=== PATIENT | female | born 1945 | race Caucasian/White ===

== ENCOUNTER 2017-12-25 11:00 | Observation (INO) | payer OTHER ==
[2017-12-25 12:24] LABS: Absolute Lymphocytes (CBC) 1.3 K/uL (0.7-4.9); Absolute Monocytes 0.7 K/uL (0.1-1.3); Absolute Neutrophil 7.7 K/uL (1.8-8.0); Basophils % 1.1 % (0-1.3); Eosinophils % 4.6 % (0-4.4); Hematocrit 29.5 % (36.0-45.0); Lymphocytes % 12.6 % (15.3-44.8); MCH 31.8 pg (27.0-35.0); MCV 90.9 fL (80-100); MPV 8.1 fL (7.6-11.3); Monocytes % 6.6 % (3.3-12.3); RBC Red Blood Cell Count 3.25 M/uL (3.86-4.86)
[2017-12-25 12:36] LABS: Protime INR 1.13
[2017-12-25 12:43] LABS: ALT/SGPT 33 U/L (12-78); AST/SGOT 22 U/L (15-37); Albumin 3.1 g/dL (3.4-5.0); Alkaline Phosphatase 240 U/L (45-117); BUN Blood Urea Nitrogen 48 mg/dL (7-18); Bicarbonate 21 mmol/L (21-32); Bilirubin Direct < 0.1 mg/dL (0-0.2); Bilirubin Total 0.1 mg/dL (0.2-1.0); Glucose Level 108 mg/dL (74-106); Magnesium 2.7 mg/dL (1.8-2.4); NT PRO-BNP 808 pg/mL (<125); Protein, Total 7.9 g/dL (6.4-8.2); Sodium Level 136 mmol/L (136-145)
--- NOTE | 2017-12-25 12:45 | RAD REPORT ---
EXAM DESCRIPTION: Mara Single View12/25/2017 12:33 pm CLINICAL HISTORY: Abdominal COMPARISON: none FINDINGS: The lungs appear clear of acute infiltrate. The heart is mildly enlarged. Postsurgical ch anges involve the chest IMPRESSION: No acute abnormalities displayed
--- NOTE | 2017-12-25 13:07 | ER ---
Nurse's Notes [facility] Name: Swati Zazueta Age: 72 yrs Sex: Female : 1945 Arrival Date: 12/25/2017 Time: 11:13 Bed 5 Private MD: out of town, doctor Diagnosis: Weakness;Hyperkalemia Presentation: 12/25 11:14 Presenting complaint: Patient states: "I'm feeling very weak and a little nauseous, I aj1 have MDS (Myelodysplastic syndrome) and I'm anemic a lot, I feel like my blood count has dropped" Reports generalized weakness and shortness of breath that started yesterday and got worse this morning. Transition of care: patient was not received from another setting of care. No acute neurological deficit is noted. Onset of symptoms was December 24, 2017. Risk Assessment: Do you want to hurt yourself or someone else? Patient reports no desire to harm self or others. Initial Sepsis Screen: Does the patient meet any 2 criteria? No. Patient's initial sepsis screen is negative. Does the patient have a suspected source of infection? No. Patient's initial sepsis screen is negative. Care prior to arrival: None. 11:14 Method Of Arrival: Ambulatory aj1 11:14 Method Of Arrival: Wheelchair aj1 11:14 Acuity: ABIDA 3 aj1 Triage Assessment: 11:23 The onset of the patients symptoms was December 24, 2017 at 06:00. General: Appears in no aj1 apparent distress. uncomfortable, Behavior is calm, cooperative, appropriate for age. Pain: Complains of pain in generalized, states "all my bones" Pain currently is 8 out of 10 on a pain scale. Neuro: Level of Consciousness is awake, alert, obeys commands, Speech is normal, Reports weakness. Cardiovascular: Patient's skin is warm and dry. Respiratory: Reports shortness of breath Airway is patent Respiratory effort is even, unlabored, Respiratory pattern is regular, symmetrical. Stroke Activation: Symptom onset > 6 hours Physician: Stroke Attending; Name: ; Notified At: ; Arrived At: Physician: Chief Stroke Resident; Name: ; Notified At: ; Arrived At: Physician: Stroke Resident; Name: ; Notified At: ; Arrived At: Physician: ED Attending; Name: ; Notified At: ; Arrived At: Physician: ED Resident; Name: ; Notified At: ; Arrived At: Historical: - Allergies: 11:23 Ativan; aj1 11:23 Crestor; aj1 11:23 Zetia; aj1 11:23 Niacin; aj1 - Home Meds: 11:23 cyclobenzaprine 10 mg Oral tab 1 tab 3 times per day [Active]; MS Contin 15 mg Oral aj1 TbER 1 tab every 8 hours [Active]; pantoprazole 40 mg oral TbEC 1 tab once daily [Active]; Percocet 10-325 mg Oral tab 1 tab every 4 hours [Active]; Plavix 75 mg Oral tab 1 tab once daily [Active]; Sodium Bicarbonate 150 mg Oral twice a day [Active]; allopurinol 100 mg Oral tab 1 tab 2 times per day [Active]; aspirin 81 mg Oral chew 1 tab once daily [Active]; Atarax Oral 25 mg daily [Active]; calcium plus vitamin d twice a day [Active]; carvedilol 25 mg oral tab 1 tab 2 times per day [Active]; Combivent 18-103 mcg/actuation Inhl aero 2 puffs 4 times per day [Active]; famotidine 40 mg Oral tab 1 tab once daily [Active]; Ferrous Sulfate Oral twice daily [Active]; hydralazine 50 mg Oral tab 1 tab 2 times per day [Active]; Lasix 80 mg Oral tab 1 tab once daily [Active]; omeprazole 20 mg Oral cpDR 1 cap once daily [Active]; Paxil 40 mg Oral tab 1 tab once daily [Active]; Zyrtec 10 mg Oral chew 1 tab once daily [Active]; - PMHx: 11:23 Anemia; COPD; CHF; myelodysplatic syndrome; GERD; aj1 - Immunization history:: Flu vaccine is not up to date. - Social history:: Smoking status: Patient/guardian denies using tobacco. - Ebola Screening: : Patient denies travel to an Ebola-affected area in the 21 days before illness onset. Screenin:17 Abuse screen: Denies threats or abuse. Denies injuries from another. Nutritional hb screening: No deficits noted. Tuberculosis screening: No symptoms or risk factors identified. Fall Risk None identified. Assessment: 11:50 General: Appears in no apparent distress. Behavior is calm, cooperative. Pain: Denies hb pain. Neuro: Level of Consciousness is awake, alert, obeys commands, Oriented to person, place, time, situation. Cardiovascular: Capillary refill < 3 seconds Patient's skin is warm and dry. Respiratory: Airway is patent Trachea midline Respiratory effort is even, unlabored, Respiratory pattern is regular, symmetrical, Breath sounds are clear bilaterally. GI: No signs and/or symptoms were reported involving the gastrointestinal system. : No signs and/or symptoms were reported regarding the genitourinary system. EENT: No signs and/or symptoms were reported regarding the EENT system. Derm: No signs and/or symptoms reported regarding the dermatologic system. Skin is intact, is healthy with good turgor, Skin is dry, Skin is pale, Skin temperature is warm. Musculoskeletal: No signs and/or symptoms reported regarding the musculoskeletal system. 12:39 Reassessment: Patient appears in no apparent distress at this time. No changes from hb previously documented assessment. Patient and/or family updated on plan of care and expected duration. Pain level reassessed. Patient is alert, oriented x 3, equal unlabored respirations, skin warm/dry/pink. 15:15 Reassessment: Margoth HUERTAS to call back for report. sv Vital Signs: 11:23 BP 127 / 62; Pulse 64; Resp 22; Temp 97.9; Pulse Ox 97% on R/A; Weight 78.02 kg (R); aj1 Height 5 ft. 5 in. (165.10 cm) (R); Pain 8/10; 12:39 BP 126 / 66; Pulse 69; Resp 17; Pulse Ox 100% on R/A; hb 14:00 BP 139 / 77; Pulse 75; Resp 18; Pulse Ox 99% ; sv 15:08 Pulse 75; Resp 15; Pulse Ox 100% ; sv 16:07 BP 153 / 74; Pulse 80; Resp 24; Pulse Ox 96% on R/A; sv 11:23 Body Mass Index 28.62 (78.02 kg, 165.10 cm) aj1 ED Course: 11:13 Patient arrived in ED. mr 11:13 out of town, doctor is Private Physician. mr 11:17 Triage completed. aj1 11:23 Arm band placed on Patient placed in an exam room. aj1 11:28 Abiel Oleary MD is Attending Physician. kdr 11:36 Prachi Fung, ALEKSANDAR is Primary Nurse. hb 12:00 Patient has correct armband on for positive identification. Placed in gown. Bed in low hb position. Call light in reach. Side rails up X 1. 12:05 Initial lab(s) drawn, by me, sent to lab. Missed attempt(s): 22 gauge in right forearm. sv Bleeding controlled, band aid applied, catheter tip intact. 12:25 X-ray(s) taken. sv 12:29 X-ray completed. Portable x-ray completed in exam room. Patient tolerated procedure kw well. 12:33 XRAY Chest (1 view) In Process Unspecified. EDMS 12:46 Notified ED physician of a critical lab result(s). K 6.0. hb 13:06 Blessing Bello MD is Hospitalizing Provider. kdr 13:14 Inserted saline lock: 24 gauge in right antecubital area, using aseptic technique. iw 13:19 EKG done, by vp of technology. reviewed by Abiel Oleary MD. sm3 15:14 Urine Dipstick--Ancillary (enter results) Sent. sv Administered Medications: 13:20 Drug: Kayexalate 60 grams Route: PO; hb 14:15 Follow up: Response: No adverse reaction hb 13:22 Drug: D50W 50 ml Route: IVP; Site: right antecubital; hb 14:00 Follow up: Response: No adverse reaction hb 13:22 Drug: Insulin Regular Human 10 units {Co-Signature: sv (Luiza Starks RN).} Route: hb IVP; Site: right antecubital; 14:00 Follow up: Response: No adverse reaction hb 13:50 Drug: Calcium Gluconate 1 grams Route: IVPB; Infused Over: 60 mins; Site: right hb antecubital; 15:00 Follow up: Response: No adverse reaction; IV Status: Completed infusion hb 14:10 Drug: NS 0.9% 500 ml Route: IV; Rate: bolus; Site: right antecubital; hb 15:00 Follow up: Response: No adverse reaction; IV Status: Completed infusion hb 14:10 Drug: Albuterol 10 mg Route: Inhalation; hb 15:50 Drug: NS 0.9% 1000 ml Route: IV; Rate: 75 ml/hr; Site: right antecubital; hb 16:17 Follow up: Response: No adverse reaction; IV Status: Infusion continued upon admission sv Outcome: 13:06 Decision to Hospitalize by Provider. kdr 16:22 Patient left the ED. sv Signatures: Dispatcher [employer] EDBrea Evans RN RN 1 Luiza Starks RN RN sv Abiel Oleary MD MD [facility] [place], Adelaide Benitez RN, Heather, RN RN Arlen De La Cruz [facility] Luiza Starks RN sv
--- NOTE | 2017-12-25 13:07 | EDPHYS ---
Physician Documentation [facility] Name: Swati Zazueta Age: 72 yrs Sex: Female : 1945 Arrival Date: 12/25/2017 Time: 11:13 Bed 5 Private MD: out of town, doctor ED Physician Abiel Oleary HPI: 12/26 07:18 This 72 yrs old Female presents to ER via Wheelchair with complaints of kdr Weakness light headed . 07:18 The patient has a history of anemia and 12 transfusions last year. none this year and kdr since yesterday, the patient c/o her typical pre-transfusion weakness similar to her prior episodes where she required transfusions. She has had no other c/o in the ED.. Onset: The symptoms/episode began/occurred yesterday. Severity of symptoms: At their worst the symptoms were mild in the emergency department the symptoms are unchanged. The patient has experienced similar episodes in the past, multiple times. The patient has not recently seen a physician. Historical: - Allergies: 12/25 11:23 Ativan; aj1 11:23 Crestor; aj1 11:23 Zetia; aj1 11:23 Niacin; aj1 - Home Meds: 11:23 cyclobenzaprine 10 mg Oral tab 1 tab 3 times per day [Active]; MS Contin 15 mg Oral aj1 TbER 1 tab every 8 hours [Active]; pantoprazole 40 mg oral TbEC 1 tab once daily [Active]; Percocet 10-325 mg Oral tab 1 tab every 4 hours [Active]; Plavix 75 mg Oral tab 1 tab once daily [Active]; Sodium Bicarbonate 150 mg Oral twice a day [Active]; allopurinol 100 mg Oral tab 1 tab 2 times per day [Active]; aspirin 81 mg Oral chew 1 tab once daily [Active]; Atarax Oral 25 mg daily [Active]; calcium plus vitamin d twice a day [Active]; carvedilol 25 mg oral tab 1 tab 2 times per day [Active]; Combivent 18-103 mcg/actuation Inhl aero 2 puffs 4 times per day [Active]; famotidine 40 mg Oral tab 1 tab once daily [Active]; Ferrous Sulfate Oral twice daily [Active]; hydralazine 50 mg Oral tab 1 tab 2 times per day [Active]; Lasix 80 mg Oral tab 1 tab once daily [Active]; omeprazole 20 mg Oral cpDR 1 cap once daily [Active]; Paxil 40 mg Oral tab 1 tab once daily [Active]; Zyrtec 10 mg Oral chew 1 tab once daily [Active]; - PMHx: 11:23 Anemia; COPD; CHF; myelodysplatic syndrome; GERD; aj1 - Immunization history:: Flu vaccine is not up to date. - Social history:: Smoking status: Patient/guardian denies using tobacco. - Ebola Screening: : Patient denies travel to an Ebola-affected area in the 21 days before illness onset. ROS: 12/26 07:18 Constitutional: Negative for fever, chills, and weight loss - she has been generally kdr weak Eyes: Negative for injury, pain, redness, and discharge, ENT: Negative for injury, pain, and discharge, Neck: Negative for injury, pain, and swelling, Cardiovascular: Negative for chest pain, palpitations, and edema, Respiratory: Negative for shortness of breath, cough, wheezing, and pleuritic chest pain, Abdomen/GI: Negative for abdominal pain, nausea, vomiting, diarrhea, and constipation, Back: Negative for injury and pain, : Negative for injury, bleeding, discharge, and swelling, MS/Extremity: Negative for injury and deformity, Skin: Negative for injury, rash, and discoloration, Neuro: Negative for headache, weakness, numbness, tingling, and seizure activity. Psych: Negative for depression, anxiety, suicide ideation, homicidal ideation, and hallucinations, Allergy/Immunology: Negative for hives, rash, and allergies, Endocrine: Negative for neck swelling, polydipsia, polyuria, polyphagia, and marked weight changes, Hematologic/Lymphatic: Negative for swollen nodes, abnormal bleeding, and unusual bruising. Exam: 07:18 Constitutional: This is a well developed, well nourished patient who is awake, alert, kdr and in no acute distress. Head/Face: Normocephalic, atraumatic. Eyes: Pupils equal round and reactive to light, extra-ocular motions intact. Lids and lashes normal. Conjunctiva and sclera are non-icteric and not injected. Cornea within normal limits. Periorbital areas with no swelling, redness, or edema. Neck: Trachea midline, no thyromegaly or masses palpated, and no cervical lymphadenopathy. Supple, full range of motion without nuchal rigidity, or vertebral point tenderness. No Meningismus. Chest/axilla: Normal chest wall appearance and motion. Nontender with no deformity. No lesions are appreciated. Cardiovascular: Regular rate and rhythm with a normal S1 and S2. No gallops, murmurs, or rubs. Normal PMI, no JVD. No pulse deficits. Respiratory: Lungs have equal breath sounds bilaterally, clear to auscultation and percussion. No rales, rhonchi or wheezes noted. No increased work of breathing, no retractions or nasal flaring. Abdomen/GI: Soft, non-tender, with normal bowel sounds. No distension or tympany. No guarding or rebound. No evidence of tenderness throughout. Back: No spinal tenderness. No costovertebral tenderness. Full range of motion. Skin: Warm, dry with normal turgor. Normal color with no rashes, no lesions, and no evidence of cellulitis. MS/ Extremity: Pulses equal, no cyanosis. Neurovascular intact. Full, normal range of motion. Neuro: Awake and alert, GCS 15, oriented to person, place, time, and situation. Cranial nerves II-XII grossly intact. Motor strength 5/5 in all extremities. Sensory grossly intact. Cerebellar exam normal. Normal gait. Psych: Awake, alert, with orientation to person, place and time. Behavior, mood, and affect are within normal limits. Vital Signs: 12/25 11:23 BP 127 / 62; Pulse 64; Resp 22; Temp 97.9; Pulse Ox 97% on R/A; Weight 78.02 kg (R); aj1 Height 5 ft. 5 in. (165.10 cm) (R); Pain 8/10; 12:39 BP 126 / 66; Pulse 69; Resp 17; Pulse Ox 100% on R/A; hb 14:00 BP 139 / 77; Pulse 75; Resp 18; Pulse Ox 99% ; sv 15:08 Pulse 75; Resp 15; Pulse Ox 100% ; sv 16:07 BP 153 / 74; Pulse 80; Resp 24; Pulse Ox 96% on R/A; sv 11:23 Body Mass Index 28.62 (78.02 kg, 165.10 cm) aj1 MDM: 13:06 Patient medically screened. kdr 12/26 07:18 Data reviewed: vital signs, nurses notes, lab test result(s), EKG, radiologic studies. kdr Counseling: I had a detailed discussion with the patient and/or guardian regarding: the historical points, exam findings, and any diagnostic results supporting the discharge/admit diagnosis, lab results, radiology results, the need for further work-up and treatment in the hospital. 12/25 11:48 Order name: Basic Metabolic Panel; Complete Time: 12:57 kdr 12/25 11:48 Order name: CBC with Diff; Complete Time: 12:57 kdr 12/25 11:48 Order name: LFT's; Complete Time: 12:57 kdr 12/25 11:48 Order name: Magnesium; Complete Time: 12:57 kdr 12/25 11:48 Order name: NT PRO-BNP; Complete Time: 12:57 kdr 12/25 11:48 Order name: PT-INR; Complete Time: 12:57 kdr 12/25 11:48 Order name: Ptt, Activated; Complete Time: 12:57 [facility] 12/25 11:48 Order name: Troponin (emerg Dept Use Only); Complete Time: 12:57 [facility] 12/25 11:48 Order name: XRAY Chest (1 view); Complete Time: 12:57 [facility] 12/25 11:48 Order name: Type And Screen [facility] 12/25 13:05 Order name: Antibody Identification [facility] 12/25 14:07 Order name: Urine Dipstick--Ancillary (enter results) 12/25 14:21 Order name: ABO/RH no charge [facility] 12/25 14:33 Order name: Urine Dipstick-Ancillary [facility] 12/25 11:48 Order name: EKG; Complete Time: 11:49 kdr 12/25 11:48 Order name: Cardiac monitoring [facility] 12/25 11:48 Order name: EKG - Nurse/Tech; Complete Time: 15:52 kdr 12/25 11:48 Order name: IV Saline Lock; Complete Time: 15:52 kdr 12/25 11:48 Order name: Labs collected and sent; Complete Time: 15:52 kdr 12/25 11:48 Order name: O2 Per Protocol; Complete Time: 15:52 kdr 12/25 11:48 Order name: O2 Sat Monitoring; Complete Time: 15:52 kdr 12/25 11:48 Order name: Urine Dipstick-Ancillary (obtain specimen); Complete Time: 14:09 kdr 12/25 15:10 Order name: EDMS Administered Medications: 12/25 13:20 Drug: Kayexalate 60 grams Route: PO; hb 14:15 Follow up: Response: No adverse reaction hb 13:22 Drug: D50W 50 ml Route: IVP; Site: right antecubital; hb 14:00 Follow up: Response: No adverse reaction hb 13:22 Drug: Insulin Regular Human 10 units {Co-Signature: sv (Luiza Starks RN).} Route: hb IVP; Site: right antecubital; 14:00 Follow up: Response: No adverse reaction hb 13:50 Drug: Calcium Gluconate 1 grams Route: IVPB; Infused Over: 60 mins; Site: right hb antecubital; 15:00 Follow up: Response: No adverse reaction; IV Status: Completed infusion hb 14:10 Drug: NS 0.9% 500 ml Route: IV; Rate: bolus; Site: right antecubital; hb 15:00 Follow up: Response: No adverse reaction; IV Status: Completed infusion hb 14:10 Drug: Albuterol 10 mg Route: Inhalation; hb 15:50 Drug: NS 0.9% 1000 ml Route: IV; Rate: 75 ml/hr; Site: right antecubital; hb 16:17 Follow up: Response: No adverse reaction; IV Status: Infusion continued upon admission sv Disposition: 12/25/17 13:06 Hospitalization ordered by Blessing Bello for Observation. Preliminary diagnosis are Weakness, Hyperkalemia. - Bed requested for Telemetry/MedSurg (observation). - Status is Observation. sv - Condition is Fair. - Problem is new. - Symptoms have improved. UTI on Admission? No Signatures: Dispatcher [employer] [facility] Brea Cote RN RN ajLuiza Cartwright RN RN sv Abiel Oleary MD MD kdr Gallardo, Ana ag Baxter, Heather, RN RN Luiza dodge Corrections: (The following items were deleted from the chart) 14:56 13:06 Hospitalization Ordered by Blessing Bello MD for Observation. Preliminary diagnosis ag is Weakness; Hyperkalemia. Bed requested for Telemetry/MedSurg (observation). Status is Observation. Condition is Fair. Problem is new. Symptoms have improved. UTI on Admission? No. kdr 16:22 14:56 12/25/2017 13:06 Hospitalization Ordered by Blessing Bello MD for Observation. sv Preliminary diagnosis is Weakness; Hyperkalemia. Bed requested for Telemetry/MedSurg (observation). Status is Observation. Condition is Fair. Problem is new. Symptoms have improved. UTI on Admission? No. ag
[2017-12-25] MEDS ORDERED: INSULIN -REGULAR HUMAN 50 UNIT/0.5 ML ML ONE (13:20)
[2017-12-25] MEDS ORDERED: D50W 25 GM/50 ML SYRINGE IV ONE (13:20)
[2017-12-25] MEDS ORDERED: SOD POLYSTYREN SUL 15 GM/60 ML UCUP ONE (13:20)
[2017-12-25] MEDS ORDERED: ONDANSETRON 4 MG/2 ML VIAL IV PRN (13:35)
[2017-12-25] MEDS ORDERED: ACETAMINOPHEN 500 MG TAB PO PRN (13:35)
[2017-12-25] MEDS ORDERED: CALCIUM GLUCONATE 1gm/100 ML NS (4.65 mEq/100mL) IV ONE ×2 (14:00)
[2017-12-25] MEDS ORDERED: ALBUTEROL 2.5 MG/3 ML NEB SOL ONE ×2 (14:13→15:09)
[2017-12-25] MEDS ORDERED: NA CHLORIDE 0.9% 1,000 ML ONE (14:13)
[2017-12-25 14:33] LABS: Urine Blood NEGATIVE (NEG); Urine Glucose TRACE (NEG); Urine Protein 3+ (NEG)
[2017-12-25] MEDS ORDERED: NA CHLORIDE 0.9% 500 ML IV SCH (15:00)
--- NOTE | 2017-12-25 15:07 | EKG ---
Test Date: 2017-12-25 Test Time: 13:04:28 [employer]: RENATE MEASUREMENT RESULTS: Intervals: Rate: 69 VT: 162 QRSD: 90 QT: 420 QTc: 450 [place]: P: 33 VT: 162 QRS: 50 T: 61 INTERPRETIVE STATEMENTS: Normal sinus rhythm Cannot rule out Anterior infarct, age undetermined Abnormal ECG No previous ECG available for comparison Electronically Signed On 12-25-17 15:06:28 CDT by Michael Simms
--- NOTE | 2017-12-25 15:10 | RAD REPORT ---
EXAM DESCRIPTION: US - Renal Ultrasound-Complete - 12/25/2017 2:40 pm CLINICAL HISTORY: NELY Flank pain COMPARISON: No comparisons FINDINGS: Both kidneys are echogenic. Several benign renal cysts are present bilaterally. The right kidney measures 9.5 x 5.2 x 5.2 cm. No hydronephrosis, focal mass or perinephric fluid. The left kidney measures 9.6 x 5.4 x 4.8 cm. No hydronephrosis, focal mass or perinephric fluid. The urinary bladder is incompletely distended without gross abnormality seen. IMPRESSION: Echogenic kidneys bilaterally most compatible with medical renal disease. Benign bilateral renal cysts.
[2017-12-25] MEDS ORDERED: ENOXAPARIN 30 MG/0.3 ML SQ SCH (17:00)
[2017-12-25 17:24] VITALS: BMI 28.6
[2017-12-25] MEDS ORDERED: CYCLOBENZAPRINE 10 MG TAB PO PRN (17:46)
[2017-12-25] MEDS ORDERED: CODEINE 30MG/APAP 300MG TAB PO PRN (17:46)
[2017-12-25] MEDS ORDERED: HOME MED 1 EA UNK (Hydroxyzine Hcl [Atarax] 25 MG) PO PRN (17:46)
[2017-12-25] MEDS: NA CHLORIDE 0.9% 1,000 ML IV SCH (17:56)
[2017-12-25] MEDS ORDERED: hydrOXYzine HCl 25 MG TAB PO PRN (18:19)
--- NOTE | 2017-12-25 18:28 | HP ---
Date of Admission: 12/25/2017 Consultants: Tressa Leiva M.D., with Nephrology. Primary Care Physician: [facility], [place] Chief Complaint: Generalized weakness. History Of Present Illness: The patient is a 72-year-old female with past medical history of myelodysplastic syndrome, COPD, congestive heart failure, chronic kidney disease, coronary artery disease, hypertension, GERD, comes in with 2-day history of generalized weakness, fatigue, some nausea, no vomiting. No fever. However, the patient does have some chills. Denies any cough, chest pain, or ill contacts. Does report some shortness of breath, which is a little bit above her baseline. The patient's symptoms are constant, moderate, progressively worsening. When she came into the ER, her vital signs were stable. She was afebrile. Her workup revealed a potassium level of 6, creatinine was 2.8, with unknown baseline, however, the patient does have chronic kidney disease. Her white count was normal. Her chest x-ray did not reveal any edema or infiltrates. The patient was given medications to reduce her potassium level including insulin, calcium, and Kayexalate. The patient was then referred for admission. When seen in the ER, she was awake, alert, oriented x3, not in any acute distress. Past Medical History: Myelodysplastic syndrome, COPD, chronic kidney disease, congestive heart failure, coronary artery disease. GERD, and hypertension. The patient has received 12 transfusions in the past for her myelodysplasia. Past Surgical History: Ankle surgery on the left with pinning, multiple surgeries for trauma to the abdomen and back. Allergies: EZETIMIBE, NIACIN, ROSUVASTATIN, LORAZEPAM. Medications: List reviewed. Social History: The patient lives in [place], visiting from out of [facility]. Has 2 sons. Good social support. Mainly independent in her activities of daily living. Family History: No history of premature coronary artery disease in the family. Review of Systems: An 11-point system reviewed, negative except as per HPI. Physical Examination: Vital Signs: Temperature 97.9, heart rate 64, blood pressure 127/62, respirations 22, and O2 saturation 97% on room air. General: Awake, alert, oriented x3, in some mild distress. Elderly female, somewhat ill-appearing, obese. HEENT: Normocephalic, atraumatic. PERRLA. EOMI. Dry mucous membranes. Oropharynx is clear. Poor dentition. Conjunctivae anicteric. Neck: Supple. No JVD. Trachea midline. CV: S1 and S2. Regular rate and rhythm. Peripheral pulses are present. Respiratory: Clear to auscultation bilaterally. No wheezing. No stridor. No use of accessory muscles Gastrointestinal: Abdomen is soft, nontender, nondistended. Positive bowel sounds. No guarding or rigidity. Extremities: No clubbing, cyanosis. The patient does have some edema on the right lower extremity. Neuro: Cranial nerves 2 through 12 intact grossly. No focal neurological deficit. Speech is normal. Sensation intact to light touch. Strength is symmetric in bilateral upper and lower extremities. Skin: No rashes, normal skin turgor. Psych: Mood is okay. Affect is full. Insight and judgment are good. Laboratory Data: Sodium 136, potassium 6, chloride 107, CO2 21, BUN 48, creatinine 2.8, glucose 108, calcium 9.1, and magnesium 2.7. Troponin less than 0.02. BNP 808. Albumin 3.1. UA, negative nitrite, trace leukocyte esterase, trace glucose, 3+ protein. INR 1.13. WBC 10.3, H and H 10.3, 29.5, platelets 307, and neutrophils 75.1. Chest x-ray shows no acute abnormalities displayed. Renal ultrasound shows echogenic kidneys bilaterally, most compatible with medical renal disease. Benign bilateral renal cysts. EKG, normal sinus rhythm, rate of 69, no ST changes. Assessment And Plan: A 72-year-old female with; 1. Generalized weakness. We will obtain PT eval, likely secondary to electrolyte disturbance. 2. Hyperkalemia. The patient has already received calcium, insulin, dextrose and Kayexalate. We will repeat potassium level and continue to monitor. 3. Chronic kidney disease. Unknown baseline. The patient does have some acute characteristics to the kidney injury. Continue with IV fluid hydration. The patient is on the dry side. Dr. Leiva with Nephrology has been consulted. 4. Myelodysplastic syndrome. We will monitor H and H. 5. Chronic obstructive pulmonary disease, chronic bronchitis. We will continue nebulizer treatments. 6. Congestive heart failure. Unknown EF, chronic, compensated. 7. Coronary artery disease [place] artery and [place] heart without angina. 8. Gastroesophageal reflux disease on PPI. 9. Essential hypertension stable. We will resume home medications once reconciled. 10. Gastrointestinal and deep venous thrombosis prophylaxis with PPI and Lovenox renally dosed. Plan: Admit the patient to Med-Surg, [facility] as observation. Code status: Full code SA/MODL Voice ID: [id number] MTDD
--- NOTE | 2017-12-25 18:52 | CON ---
Date of Consultation: 12/25/2017 Consulting Physician: Dr. Blessing Bello. Reason For Consultation: Elevated BUN and creatinine, hyperkalemia. History Of Present Illness: This is a pleasant 72-year-old female with significant past medical hist ory of coronary artery disease status post MS back in July this year, complicated with congestive heart failure, MDS, COPD, osteoarthritis. According to the patient, she is known to have chronic ki dney disease, but she does not know the degree of it and the patient apparently had chronic acidosis being on oral sodium bicarb. The patient came visiting from [facility], started having some diarrhea, abdominal pain, nausea without any vomiting for the last couple of days. For that reason, reported to the emergency room. In the emergency room, a primary workup showed elevated BUN and creatinine, B UN 48, creatinine 2.8 with GFR around 17. For that reason, the patient is admitted and we have been consulted. The patient denied taking any nonsteroidal. No recent change in her medication. [facility] had contrast with cardiac cath and PTCA back in September of this year. The patient started on treatment for her hyperkalemia and we have been consulted. Blood pressure has been stable for the patient. Past Medical History: Include: 1.Hypertension. 2.Coronary artery disease status post PTCA status post MS back in September of this year. 3.COPD. 4.MDS. 5.Osteoarthritis. Social History: The patient [place]. Denies smoking, denies drinking, denies drug abuse. Past Surgical History: Include PTCA. Allergies: NO KNOWN DRUGS ALLERGY. Home Medications: Include: 1.Pepcid. 2.Pantoprazole. 3.Iron sulfate. 4.Sodium bicarb. Review of Systems: Head and Neck: No red eye. No ear pain. GI: Has nausea, has diarrhea. : No polyuria. No dysuria. No hematuria. 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 Respiratory: No shortness of breath. Cardiovascular: No chest pain. Neuro: No neuropathy. Musculoskeletal: No joint pain. Endocrine: No polydipsia. Skin: No rash. Physical Examination: Vital Signs: When I saw the patient, blood pressure 110/78, pulse of 88. Chest: Clear to auscultation. Heart: S1, S2. Regular. Abdomen: Soft, nontender. Extremities: No edema. Laboratory Data: Sodium 136, potassium 6, bicarb 21, BUN 48, creatinine 2.8, calcium 9.1, magnesium 2.7. LFT within normal limit. BNP 808, albumin 3.1. WBC 10.3, H and H 10.3/29.5, platelets 307, IN R 1.1. Assessment And Plan: 1.Renal failure, mostly chronic kidney disease secondary to cardiorenal, stable with hyperkalemia, m ostly had component of acute kidney injury secondary to prerenal. I do not see any medication. 2.I agree with the IV fluid. We will bolus the patient with 500 of normal saline and we will send f or full workup. 3.Hyperkalemia secondary to renal failure. I am going to go ahead and send for fecal occult, send f or TSH and we will start aggressive hydration to compensate. Give the patient albuterol D50 insulin and calcium gluconate and we will follow up. Repeat. 4.Coronary artery disease. Stable. 5.Acidosis. We will continue her oral bicarb. The patient's case is discussed with Dr. Bello, agreed on the plan. Discussed with the patient, ynes will. LORNA/ARIS Voice ID: [id number] Report ID: [id number]
[2017-12-25] MEDS: ALBUTEROL 2.5 MG/3 ML NEB SOL NEB SCH (19:29)
[2017-12-25] MEDS: IPRATROPIUM BROM 0.5MG/2.5ML NEB SCH (19:29)
[2017-12-25] MEDS ORDERED: AMLODIPINE 10 MG TAB PO SCH (21:00)
[2017-12-25] MEDS ORDERED: HOME MED 1 EA UNK (Hydralazine Hcl [Apresoline] 1 TAB) PO SCH (21:00)
[2017-12-25] MEDS: CARVEDILOL 25 MG TAB PO SCH (21:08)
[2017-12-25] MEDS: HYDRALAZINE HCL 25 MG TABLET PO SCH (21:08)
[2017-12-25] MEDS: SODIUM BICARB 325 MG TAB PO SCH (21:08)
[2017-12-25] MEDS: MORPHINE *EXTENDED RELEASE* 15 MG TAB PO SCH (21:09)
[2017-12-25] MEDS: ALLOPURINOL 100 MG TAB PO SCH (21:09)
[2017-12-26] MEDS: NA CHLORIDE 0.9% 1,000 ML IV SCH
[2017-12-26] MEDS: IPRATROPIUM BROM 0.5MG/2.5ML NEB SCH ×2 (01:57→07:55)
[2017-12-26] MEDS: ALBUTEROL 2.5 MG/3 ML NEB SOL NEB SCH ×2 (01:57→07:55)
[2017-12-26 04:39] VITALS: O2SAT 95
[2017-12-26 05:35] LABS: Absolute Lymphocytes (CBC) 1.8 K/uL (0.7-4.9); Absolute Monocytes 0.7 K/uL (0.1-1.3); Absolute Neutrophil 7.6 K/uL (1.8-8.0); Basophils % 0.8 % (0-1.3); Eosinophils % 4.5 % (0-4.4); Hematocrit 24.1 % (36.0-45.0); Lymphocytes % 16.8 % (15.3-44.8); MCH 31.3 pg (27.0-35.0); MCV 91.5 fL (80-100); MPV 7.8 fL (7.6-11.3); Monocytes % 6.2 % (3.3-12.3); RBC Red Blood Cell Count 2.63 M/uL (3.86-4.86)
[2017-12-26 06:18] LABS: Albumin 2.7 g/dL (3.4-5.0); Bilirubin Total 0.2 mg/dL (0.2-1.0); Ferritin 479.4 ng/mL (8-388); Folic Acid, (Folate) 9.1 ng/mL (3.1-17.5); Phosphorus 3.9 mg/dL (2.5-4.9); Potassium 4.1 mmol/L (3.5-5.1)
[2017-12-26 06:19] LABS: Thyroid Stimulating Hormone 8.97 uIU/mL (0.36-3.74)
[2017-12-26] MEDS ORDERED: PANTOPRAZOLE 40MG TABLET PO SCH (07:30)
[2017-12-26] MEDS: ALLOPURINOL 100 MG TAB PO SCH (08:38)
[2017-12-26] MEDS: MORPHINE *EXTENDED RELEASE* 15 MG TAB PO SCH (08:38)
[2017-12-26] MEDS: HYDRALAZINE HCL 25 MG TABLET PO SCH (08:38)
[2017-12-26] MEDS: SODIUM BICARB 325 MG TAB PO SCH (08:39)
[2017-12-26] MEDS: CARVEDILOL 25 MG TAB PO SCH (08:39)
[2017-12-26] MEDS ORDERED: PARoxetine HCl 10 MG TAB PO SCH (09:00)
[2017-12-26] MEDS ORDERED: PAROXETINE HCL PO SCH (09:00)
[2017-12-26] MEDS ORDERED: CLOPIDOGREL 75 MG TABLET PO SCH (09:00)
[2017-12-26] MEDS ORDERED: ASPIRIN 81 MG CHEWABLE TABLET PO SCH (09:00)
[2017-12-26 12:16] VITALS: BP 140/60; TEMP 98
--- NOTE | 2017-12-26 12:26 | DS ---
Consultants: Tressa Leiva M.D. with Nephrology. Discharge Diagnoses: 1.Generalized weakness. 2.Hyperkalemia, corrected. 3.Chronic kidney disease. 4.Myelodysplastic syndrome. 5.Chronic obstructive pulmonary disease, chronic bronchitis. 6.Congestive heart failure. 7.Coronary artery disease, cheesh-na artery and cheesh-na heart, without angina. 8.Gastroesophageal reflux disease. 9.Essential hypertension. Hospital Course: The patient is 72-year-old female, comes in from out of town with a significant pas t medical history of myelodysplastic syndrome, COPD, CHF, chronic kidney disease, comes in with gener alized weakness. She was found to be hyperkalemic. She was given medications for reducing the potas sium level. Repeat level was normal. The patient did well. Her creatinine was 2.8 with unclear bas reuben. However, the patient does have established chronic kidney disease. Her creatinine improved t o 2.6. She was hydrated with IV fluids. Dr. Leiva with Nephrology saw the patient as well. The patient's medication list did not have any HERBERT inhibitors or any other medications that may have caus ed hyperkalemia. The patient's acidosis resolved. She is feeling better. She was worked with physi harry therapy. She was evaluated and did not recommend any inpatient physical therapy. The patient do es use a cane at home. The patient's vital signs were stable. She felt significantly better. She d id have a drop in her hemoglobin; however, has received 12 units of PRBCs in the past year due to her myelodysplastic syndrome. The patient was then cleared for discharge and was sent home in a stable condition. Activity: As tolerated, fall precautions. Medications: As per medication reconciliation list. Diet: Low sodium, 1500 mL fluid restriction. Follow Up: With PCP in 2-3 days. Return to ER for worsening condition. Physical Examination: General: Awake, alert, oriented, no acute distress. Elderly female, obese. CV: S1, S2. No murmurs. Respiratory: Moving air well bilaterally Gastrointestinal: Abdomen is soft, nontender, nondistended . Positive bowel sounds. Extremities: No clubbing, cyanosis, or edema. Neurologic: Nonfocal. SA/MODL Voice ID: [id number] Report ID: [id number]
== END 2017-12-26 13:53 | disposition home or self-care (01) ==
LOC: ER 11:00 → ERHOLD 13:08 → 4TH 16:11
PROVIDERS: ADMIT Family Medicine; ATTEND Family Medicine
DX: R53.1 Weakness (principal); E87.5 Hyperkalemia; I13.0 Hypertensive heart and chronic kidney disease with heart failure and stage 1 through stage 4 chronic kidney disease, or unspecified chronic kidney disease; N18.9 Chronic kidney disease, unspecified; I50.9 Heart failure, unspecified; I25.10 Atherosclerotic heart disease of native coronary artery without angina pectoris; D46.9 Myelodysplastic syndrome, unspecified; J44.9 Chronic obstructive pulmonary disease, unspecified; K21.9 Gastro-esophageal reflux disease without esophagitis
CPT/HCPCS: 36415; 71045; 76770; 80048; 80053; 80069; 80076; 81003; 82607; 82728; 82746; 83540; 83735; 83880; 83970; 84439; 84443; 84466; 84484; 85025 ×2; 85044; 85610; 85730; 86850; 86870; 86900; 86901; 93005; 94640; 94760 ×3; 96365; 96375; 97163; 99284; J0610; J1650; J7030 ×3; 96361; G0378